=== PATIENT | female | born 2000 | race Caucasian/White ===

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

== ENCOUNTER 2020-04-18 12:11 | Emergency (ER) | payer BC ==
[~2020-04-18] VITALS: Ht 154.9 cm; Wt 81.8 kg
[~2020-04-18 12:11] MED LIST changes: +AUGMENTIN 875-11 TAB PO
[2020-04-18 12:28] VITALS: BP 109/63; Ht 154.9 cm; Wt 81.8 kg
[2020-04-18] MEDS ORDERED: CEPHALEXIN500 M1 PO (14:17)
[2020-04-18 14:37] LABS: BASOPHILS 0.3 % (0-2); EOSINOPHILS 0.8 % (0-7); HEMATOCRIT 43.4 % (36.0-48.0); HEMOGLOBIN 14.8 g/dL (12-16); IMMATURE GRANULOCYTES 0.1 % (0-5); LYMPHOCYTE ABS# 2.24 10x3/uL (1.18-3.74); LYMPHOCYTES 24.1 % (15-50); MCHC 34.1 g/dL (31.0-37.0); MCV 85.1 fL (80.0-100.0); MONOCYTES 11.1 % (2-11); NEUTROPHIL ABS# 5.92 10x3/uL (1.56-6.13); NEUTROPHILS 63.6 % (40-80); PLATELET COUNT 273 10x3/uL (130-400); WBC 9.3 10x3/uL (4.8-10.8)
[2020-04-18 14:41] LABS: CALC OSMOLALITY 265 mosm/kg (275-300); CALCIUM 9.3 mg/dL (8.5-10.1); CARBON DIOXIDE 26.1 mmol/L (21.0-32.0); CHLORIDE - SERUM 99 mmol/L (98-107); CREATININE - SERUM 0.6 mg/dL (0.6-1.3); GLUCOSE 85 mg/dL (74-106); POTASSIUM - SERUM 4.4 mmol/L (3.5-5.1); SODIUM 134 mmol/L (136-145); UREA NITROGEN 11 mg/dL (7-18); eGFR NON AFRICAN AMERICAN > 90 mL/min (90-120)
[2020-04-18 14:45] LABS: ALKALINE PHOSPHATASE 111 U/L (30-120); ALT (SGPT) 62 U/L (10-68); BILIRUBIN - TOTAL 0.71 mg/dL (0.2-1.3); PROTEIN - SERUM 8.2 g/dL (6.4-8.2)
== END 2020-04-18 14:36 | disposition home or self-care (01) ==
LOC: D.ER 12:11
PROVIDERS: Emergency Medicine
DX: J02.0 Streptococcal pharyngitis (principal); Z72.0 Tobacco use; J45.909 Unspecified asthma, uncomplicated